=== PATIENT | female | born 1970 | race Caucasian/White ===

== ENCOUNTER → 2017-11-08 | Outpatient (CLI) | payer OTHER | LOC: M.RAD 17:13 | DX: N20.0 Calculus of kidney (principal); R07.81 Pleurodynia ==

== ENCOUNTER → 2017-11-11 | Outpatient (CLI) | payer OTHER | LOC: M.CT 13:00 | DX: K76.89 Other specified diseases of liver (principal); N20.0 Calculus of kidney; E27.9 Disorder of adrenal gland, unspecified; R91.8 Other nonspecific abnormal finding of lung field ==

== ENCOUNTER → 2017-11-16 | Outpatient (CLI) | payer OTHER | LOC: M.ULTRA 07:52 | DX: N28.1 Cyst of kidney, acquired (principal); N28.89 Other specified disorders of kidney and ureter; K76.9 Liver disease, unspecified; E27.9 Disorder of adrenal gland, unspecified; R16.0 Hepatomegaly, not elsewhere classified ==